=== PATIENT | male | born 1975 | race Caucasian/White ===

== ENCOUNTER 2018-07-23 09:53 | Emergency (ER) | payer OTHER ==
[2018-07-23] MEDS ORDERED: LORazepam 2 MG/ML INJ IVP ONE (10:06)
--- NOTE | 2018-07-23 10:12 | EDPHY ---
H & P Stated Complaint: alcohol withdrawl/ anxiety - Personal History Current Tetanus/Diphtheria Vaccine: Unsure Current Tetanus Diphtheria and Acellular Pertussis (TDAP): Unsure Tetanus Vaccine Date: 2008 - Medical/Surgical History Hx Asthma: No Hx Chronic Respiratory Disease: No Hx Diabetes: No Hx Cardiac Disease: No Hx Renal Disease: No Hx Cirrhosis: No Hx Alcoholism: Yes Hx HIV/AIDS: No Hx Splenectomy or Spleen Trauma: No Other PMH: ETOH, alcohol withdrawl - Social History Smoking Status: Former smoker Time Seen by Provider: 07/23/18 10:00 HPI/ROS: CHIEF COMPLAINT: "I am pretty sure I am withdrawing from alcohol" HISTORY OF PRESENT ILLNESS: 42-year-old male self-described history of heavy alcohol use, states that over the long weekend (today is Sunday proceeding the ) he drank heavy amounts of alcohol, "several fifths of liquor". Yesterday he states that feeling over he drunk "lots and lots of water " and this morning continued to feel ill, took 2 shots of liquor and call 911 when he notes carpal pedal spasms and anxiety. He denies hallucination. Denies seizure. Denies gait instability. Denies headache. Denies trauma or fall. Denies abdominal pain. PRIMARY CARE PROVIDER: REVIEW OF SYSTEMS: 10 systems reviewed and negative with the exception of the elements mentioned in the history of present illness PAST MEDICAL & SURGICAL HISTORY: No pertinent medical or surgical history SOCIAL HISTORY:Positive for heavy alcohol use over the FAMILY HISTORY: father with history of alcoholism PHYSICAL EXAM (Prior to examination, patient consented to physical exam, hands were washed and my usual and customary physical exam procedures followed) 1) GENERAL: Well-developed, well-nourished, alert and oriented. Appears anxious. He is tremulous. 2) HEAD: Normocephalic, atraumatic 3) HEENT: Pupils equal, round, reactive to light bilaterally. Sclera anicteric. Nasopharynx, oropharynx, clear, no lesions. 4) NECK: Full range of motion, no meningeal signs. 5) LUNGS: Clear auscultation bilaterally, no wheezes, no rhonchi, no retractions. 6) HEART: Regular rate and rhythm, no murmur, no heave, no gallop. 7) ABDOMEN: No guarding, no rebound, no focal tenderness, negative McBurney's, negative Rollins's, negative Rovsing's, negative peritoneal sign, 8) MUSCULOSKELETAL: Moving all extremities, no focal areas of tenderness, no obvious trauma. No peripheral edema or discoloration. 9) BACK: No CVA tenderness, no midline vertebral tenderness, no fluctuance, no step-off, no obvious trauma, no visual or palpable abnormality. 10) SKIN: No rash, no petechiae. 11) Psychiatric: Patient is oriented X 3, there is no agitation. DIFFERENTIAL DIAGNOSIS: In no particular order including but not limited to acute alcohol withdrawal, hyponatremia, delirium tremens (Yves Etienne Susan) Constitutional: Initial Vital Signs Temperature (C) 36.8 C 07/23/18 09:52 Heart Rate 88 07/23/18 09:52 Respiratory Rate 20 07/23/18 09:52 Blood Pressure 153/108 H 07/23/18 09:52 O2 Sat (%) 97 07/23/18 09:52 O2 Delivery Mode Nasal Cannula Allergies/Adverse Reactions: seasonal Allergy (Uncoded 07/23/18 14:47) Home Medications: Medication Instructions Recorded Taryn Allergy 07/23/18 Breo Ellipta 100-25 Mcg INH 07/23/18 Flonase Nasal [place] 07/23/18 Medical Decision Making ED Course/Re-evaluation: 10:11 a.m.: Will administer IV benzodiazepine will hold on IV fluids at this time as he notes that he has been drinking copious amounts of alcohol that he may be hyponatremic. Will check laboratory studies 1st. Care of patient under supervision of secondary supervising physician Dr Dunham with whom I discussed case. 11:18 a.m.: Re-evaluation, feeling improvement, tremor resolved. [facility]. 11:54 a.m.: Due to finance and insurance issues the patient has decided not to go to the [facility] and would like to be discharged home. He will plan on following up with his primary care provider. He has been warned of the risks of sudden cessation of alcohol, including, but not limited to, seizure, , delirium (Yves Etienne Susan) Other Provider: The patient was evaluated and managed by the Physician Retail Salesperson. I discussed the patient's presentation and course with the midlevel provider with them and agree with the evaluation. My co-signature indicates that I have reviewed this chart and I agree with the findings and plan of care as documented. I am the secondary supervising physician. (Christen Dunham) - Data Points Laboratory Results: Laboratory Results 07/23/18 10:03 07/23/18 10:03 Medications Given: Discontinued Medications Chlordiazepoxide (Librium 25 Mg Prepack#6) 1 btl TAKEHOME EDNOW ONE Stop: 07/23/18 11:20 Last Admin: 07/23/18 12:16 Dose: Not Given Lorazepam (Ativan Injection) 1 mg IVP EDNOW ONE Stop: 07/23/18 10:07 Last Admin: 07/23/18 10:11 Dose: 1 mg Departure - Departure Disposition: Home, Routine, Self-Care Clinical Impression: Alcohol withdrawal Condition: Good Instructions: Alcohol Withdrawal (ED) Referrals: Randall Calabrese MD [[facility] [place] - 1-2 days without fail
[2018-07-23 10:13] LABS: PLATELET COUNT 215 10^3/uL (150-400)
[2018-07-23] MEDS ORDERED: CHLORDIAZEPOXIDE 25MG PREPK#6 BTL TAKEHOME ONE (11:19)
[2018-07-23 12:20] VITALS: BP 155/102
== END 2018-07-23 12:27 | disposition home or self-care (01) ==
LOC: EDUNIT#
DX: F10.239 Alcohol dependence with withdrawal, unspecified (principal)
CPT/HCPCS: 96374; G0480; J2060

== ENCOUNTER 2018-07-23 14:43 | Emergency (ER) | payer OTHER ==
[2018-07-23 14:49] VITALS: BP 152/105
[2018-07-23] MEDS ORDERED: chlordiazePOXIDE 25 MG CAP PO ONE (14:55)
--- NOTE | 2018-07-23 15:03 | EDPHY ---
H & P Time Seen by Provider: 07/23/18 14:50 HPI/ROS: CHIEF COMPLAINT: "[facility]" HISTORY OF PRESENT ILLNESS: 42-year-old male seen by myself in the ER few hours ago. That time the patient was offered discharged to the [facility] which he declined. He left the emergency department, ate some lunch and returns stating that after the benzodiazepines had worn off he feels recurrence of his withdrawal symptoms. He is complaining of feeling tremulous, anxious. Denies suicidal or homicidal ideation. Denies hallucination Denies seizure. Denies fall. Denies hallucination. Denies nausea or vomiting. PRIMARY CARE PROVIDER: REVIEW OF SYSTEMS: 10 systems reviewed and negative with the exception of the elements mentioned in the history of present illness PAST MEDICAL & SURGICAL HISTORY: No pertinent medical or surgical history SOCIAL HISTORY: Positive for recent heavy alcohol use PHYSICAL EXAM (Prior to examination, patient consented to physical exam, hands were washed and my usual and customary physical exam procedures followed) 1) GENERAL: Well-developed, well-nourished, alert and oriented. Appears anxious. He is tremulous.. 2) HEAD: Normocephalic, atraumatic 3) HEENT: Pupils equal, round, reactive to light bilaterally. Sclera anicteric. Nasopharynx, oropharynx, clear, no lesions. Moist Mucous membranes. No signs of trauma 4) NECK: Full range of motion, no meningeal signs. 5) LUNGS: Clear auscultation bilaterally, no wheezes, no rhonchi, no retractions. 6) HEART: Regular rate and rhythm, no murmur, no heave, no gallop. 7) ABDOMEN: No guarding, no rebound, no focal tenderness, negative McBurney's, 8) MUSCULOSKELETAL: Moving all extremities, no focal areas of tenderness, no obvious trauma. No peripheral edema or discoloration. 9) BACK: No CVA tenderness, no midline vertebral tenderness, no fluctuance, no step-off, no obvious trauma, no visual or palpable abnormality. 10) SKIN: No rash, no petechiae. 11) Psychiatric: Patient is oriented X 3, there is no agitation. DIFFERENTIAL DIAGNOSIS: In no particular order including but not limited to acute alcohol withdrawal, delirium tremens, alcoholic hallucinosis Smoking Status: Former smoker Constitutional: Initial Vital Signs Temperature (C) 37.3 C 07/23/18 14:47 Heart Rate 115 H 07/23/18 14:47 Respiratory Rate 18 07/23/18 14:47 Blood Pressure 152/105 H 07/23/18 14:47 O2 Sat (%) 95 07/23/18 14:47 O2 Delivery Mode Room Air Allergies/Adverse Reactions: seasonal Allergy (Uncoded 07/23/18 14:47) Home Medications: Medication Instructions Recorded Taryn Allergy 07/23/18 Breo Ellipta 100-25 Mcg INH 07/23/18 Flonase Nasal [place] 07/23/18 MDM/Departure - MDM ED Course/Re-evaluation: 2:56 p.m.: Patient denies suicidal or homicidal ideation. He has no clinical evidence of delirium tremens. He is tremulous. I have agreed to give him a dose of Librium in the ER he would [facility] to [facility] with Librium prepack as he states that he is ready to remain sober from alcohol. Care of patient under supervision of primary supervising physician Dr Zaidi . - Depart Disposition: Home, Routine, Self-Care Clinical Impression: Alcohol withdrawal Qualifiers: Complication of substance-induced condition: with unspecified complication Qualified Code(s): F10.239 - Alcohol dependence with withdrawal, unspecified Condition: Good Instructions: Chlordiazepoxide (By mouth), Alcohol Withdrawal (ED) Referrals: [facility] [Outside] - 1 day without fail
[2018-07-23] MEDS ORDERED: CHLORDIAZEPOXIDE 25MG PREPK#6 BTL TAKEHOME ONE (15:08)
== END 2018-07-23 15:15 | disposition home or self-care (01) ==
DX: F10.239 Alcohol dependence with withdrawal, unspecified (principal); Z87.891 Personal history of nicotine dependence